=== PATIENT | male | born 1980 | race Caucasian/White ===

== ENCOUNTER 2020-06-25 19:51 | Emergency (ER) | payer MEDICARE, SELFPAY ==
[2020-06-25 19:57] VITALS: BP 159/100; PULSE 105; RESP 18; TEMP 36.6; O2SAT 97; BMI 27.3
--- NOTE | 2020-06-25 20:12 | ED_ITS ---
HPI - Back Pain/Injury General: Chief Complaint: Back Pain/Injury Stated Complaint: FELL/BLE INJURY Time Seen by Provider: 06/25/20 20:02 History of Present Illness: HPI Narrative: 39-year-old male patient presents to the emergency department with low back pain. He suffers from chronic back pain, degenerative disc disease. He sustained a fall today around 2:20 PM, states was walking and slipped and fell on the ice, landed on his bottom. He states immediate tingling of the left lower extremity appeared. He reports continued pain of the lower back, he denies other injury such as head injury or neck pain upon exam. He reports previous fall earlier this week, slipped, experienced worsening chronic back pain at that time. He did not seek medical treatment. He denies bowel or bladder incontinence, denies weakness of the left lower extremity. He denies neck pain or other concerning symptoms upon exam. MD elicited complaint: back pain, back injury and fall Pertinent past history: prior back pain and recent trauma Onset (ago): hour(s) (6) Timing: constant and progressively worsening Severity: moderate Similar Symptoms Previously: Yes Quality: sharp, stabbing and aching Location: lumbar spine Radiation: buttocks (left) Exacerbating factors: movement and walking Relieving factors: immobilization Context: fall Associated symptoms: Reports tingling/numbness/burning (LLE); Deny abdominal pain, chills, difficulty walking, dysuria, fecal incontinence, fever(s), nausea or vomiting Work related injury: No Review of Systems General: Reports: 10 or more systems reviewed and unremarkable except in HPI and below Const: Denies: fever(s), chills or diaphoresis Eyes: Denies: blurry vision or eye redness ENMT: Denies: throat pain, dental pain or disequilibrium Card: Denies: chest pain, palpitations or irregular heart rhythm Resp: Denies: dyspnea, productive cough, non-productive cough or wheezing GI: Denies: abdominal pain, nausea, vomiting, diarrhea or fecal incontinence : Denies: difficulty urinating or dysuria Musc: Reports: back pain; Denies: neck pain, joint pain, joint stiffness or muscle weakness Skin/Breast: Denies: rash or pruritus Neuro: Denies: headache(s), numbness in extremities, weakness in extremities, difficulty walking or behavioral changes Psych: Denies: anxiety or depression Ritchie/Lymph: Denies: easy bruising PFSH ED PFSH: Medical History DDD (degenerative disc disease), cervical Degenerative disc disease, lumbar Hypertension Mixed hyperlipidemia Postdysenteric arthropathy, right knee Social History Smoking and tobacco status: current some day smoker Second hand smoke exposure: No Alcohol intake: never Desire information about alcohol rehabilitation?: No Counseling given: No Desire information about substance/drug rehabilitation?: No Counseling given: No Physical Exam Const: COMMON NORMALS: no acute distress, patient oriented x3, healthy appearing and alert GENERAL APPEARANCE: cooperative, comfortable, well kempt, well developed and well hydrated; not in distress, not anxious and not combative NUTRITIONAL APPEARANCE: thin ORIENTATION/CONSCIOUSNESS: Yes awake, Yes oriented to person, Yes oriented to place and Yes oriented to time HENMT: COMMON NORMALS: normocephalic, atraumatic, EAC's normal, Normal external nose present and moist oral mucous membranes HEAD & SCALP: normal to inspection, normocephalic and atraumatic FACE & SINUS: normal facial exam and face symmetric NOSE: Normal external nose present EXTERNAL AUDITORY CANAL: EAC's normal MOUTH: Normal oral and palatal mucosa present Eye: COMMON NORMALS: Equal, round and reactive pupils present and EOMs intact bilaterally GENERAL EYE: appearance normal, both eyes and all related structures PUPIL: Yes Equal, round and reactive pupils present Neck/C-Spine: COMMON NORMALS: full ROM, no lymphadenopathy, supple and no meningeal signs GENERAL: Yes normal visual inspection and Yes trachea midline CERVICAL SPINE: Yes cervical ROM normal, No pain with cervical ROM and No Cervical spine tenderness Lymph: LYMPHATIC: no lymphadenopathy noted Chest: COMMONS NORMALS: normal inspection of the chest and normal palpation of entire chest wall Resp: COMMON NORMALS: normal respiratory effort, No retractions, No use of accessory muscles and clear to auscultation bilaterally EFFORT & INSPECTION: Yes able to speak in complete sentences, No labored and No audible wheezes AUSCULTATION: clear to auscultation bilaterally Cardio: COMMON NORMALS: regular rate, regular rhythm, S1 normal heart sound present, S2 normal heart sound present and Peripheral pulses 2+ throughout RATE: regular rate RHYTHM: regular rhythm HEART SOUNDS: S1 normal heart sound present and S2 normal heart sound present PERIPHERAL PULSES: Peripheral pulses 2+ throughout GI: COMMON NORMALS: Normal to inspection, nondistended, normoactive bowel sounds present, Soft to palpation and non-tender INSPECTION: Yes normal to inspection, No abdominal distension and No central obesity PALPATION: Yes Soft to palpation : COMMON NORMALS: Yes no CVA tenderness BLADDER/KIDNEY EXAM: Yes no CVA tenderness Back/Pelvis: COMMON NORMALS: no CVA tenderness and thoracic and lumbar spine normal to inspection THORACIC SPINE/UPPER BACK: Yes normal to inspection, Yes thoracic ROM normal and No paraspinal muscle spasm LUMBAR SPINE/LOWER BACK: Yes normal to inspection, Yes ROM limited, Yes lumbar spinal tenderness Lumbar spinal tenderness location: L3, L4 and L5, Yes paraspinal muscle tenderness Lumbar paraspinal muscle tenderness: left, Yes paraspinal muscle spasm Lumbar paraspinal muscle spasm: left, Yes straight leg raise positive left and Yes bend over test abnormal SACROILIAC JOINTS: Yes SI joint(s) abnormal SI joint details: tender to palpation (lt) and pain elicited by compression of iliac crest maneuver (lt) Extremity: COMMON NORMALS: normal to inspection, full ROM, capillary refill normal, no joint enlargement, no clubbing, cyanosis or edema, no calf tenderness and no pedal edema GENERAL: Yes normal exam except as noted Neuro: VERONICA COMA SCALE: document [facility] findings [place] coma scale eye opening: Spontaneous [place] coma scale verbal response: Orientated COMMON NORMALS: patient oriented x3 and no focal motor deficits SENSORIUM/ORIENTATION: Yes alert, Yes oriented to person, Yes oriented to place and Yes oriented to time MENINGEAL SIGNS: Yes no meningeal signs SPEECH: speech normal MONOFILAMENT EXAM PERFORMED: Yes Monofilament Exam (small fiber function): L great toe: decreased, L 3rd toe: decreased and L 5th toe: decreased MOTOR EXAM: Abnormal motor strength present (4/5 LLE) Psych: COMMON NORMALS: mental status grossly normal, Normal thought process present and cooperative APPEARANCE: Yes well kempt ACTIVITY/MOTOR BEHAVIOR: Yes appropriate eye contact THOUGHT PROCESS: Normal thought process present Skin: COMMON NORMALS: no rashes or lesions noted and turgor normal GENERAL SKIN EXAM: no rashes or lesions noted and turgor normal Course Vital Signs: Vital signs: Vital Signs Temperature 97.8 F 06/25/20 19:57 Pulse Rate 82 06/25/20 22:28 Respiratory Rate 18 06/25/20 19:57 Blood Pressure 157/92 06/25/20 22:28 Pulse Oximetry 97 06/25/20 22:28 MDM - Back Pain/Injury MDM Narrative: Medical decision making narrative: 39-year-old male patient presents to the emergency department with chronic low back pain, sustained 2 falls within the past week with new onset of tingling of the left lower extremity. Concern for radiculopathy, CT lumbar spine completed, results of no acute lumbar spinal injury demonstrated by CT. Hydrocodone provided here in the ED, effective with pain control. Results were discussed, he was provided prednisone to help with inflammation and pain due to left side sciatica. He did not demonstrate bowel or bladder incontinence, he did not reveal weakness of the left lower extremity. Monofilament exam slightly decreased to the left lower extremity. He is advised to follow-up with his primary care, MRI discussed as potential future test if symptoms continue. Differential Diagnosis: Differential diagnosis back pain/injury: Likely lumbar radiculopathy, sciatica and strain of lumbar region Imaging Data^: Other CT: Radiologist's impression: [address] [address] [address] Scan Report Signed Patient: Sarwat Rivera #: [id number] : 1980Acct#:[id number] Age/Sex: 39 / MADM Date: 06/25/20 [facility] Attending Dr: Ordering Provider/Ordering MD: Stacie Saxena Date of Service: 06/25/20 Procedure(s): CT lumbar spine wo con* [id number] Accession Number(s): [id number] Report Number: [id number] PROCEDURE INFORMATION: Exam: CT Lumbar Spine Without Contrast Exam date and time: 06/25/2020 8:47 PM Age: 39 years old Clinical indication: Injury or trauma; Blunt trauma (contusions or hematomas); Patient HX: S/P fall in ice C/O lbp w lle radiculopathy; Additional info: L/s spine pain with radiculopathy lle S/P fall TECHNIQUE: Imaging protocol: Computed tomography images of the lumbar spine without contrast. Radiation optimization: All CT scans at this facility use at least one of these dose optimization techniques: automated exposure control; mA and/or kV adjustment per patient size (includes targeted exams where dose is matched to clinical indication); or iterative reconstruction. COMPARISON: No relevant prior studies available. RADIATION DOSE METRICS: Total DLP (mGy-cm): 2393.5 FINDINGS: Vertebrae: There is no anterior wedging deformity. No acute lucent fracture lines are seen. No destructive osseous lesions are identified. Discs/Spinal canal/Neural foramina: There is no central canal or neural foraminal stenosis demonstrated by CT. CT/CT lumbar spine wo con* [id number] IMPRESSION: No acute lumbar spinal injury demonstrated by CT. Radiation Dose CTDIVOL = (mGy): DLP = 2393.5 (mGy-cm) Dictated By:Lidya Shelby MD Signed By:Lidya Shelbyigned Date/Time:06/25/202124 DD/ 24 Discharge Plan Discharge Patient Disposition: Home Clinical Impression: Sciatic leg pain Fall Qualifiers: Encounter type: initial encounter Qualified Code(s): W19.XXXA - Unspecified fall, initial encounter Lumbar back sprain Qualifiers: Encounter type: initial encounter Qualified Code(s): S33.5XXA - Sprain of ligaments of lumbar spine, initial encounter Condition: Stable Prescriptions: New prednisone 20 mg tablet 20 mg PO BID 5 Days Qty: 10 RF: 0 methocarbamol 750 mg tablet 750 mg PO Q8H Qty: 14 RF: 0 naproxen 500 mg tablet 500 mg PO BID PRN (Reason: pain) Qty: 14 RF: 0 No Action rosuvastatin [Crestor] 5 mg tablet 5 mg PO DAILY 90 Days Qty: 90 RF: 1 Discharge Orders: Discharge ED (Routine); Ordered 06/25/20 Ordered By: Stacie Saxena Referrals: VANDANA Davis, MEDICAL OFFICE ASST [Primary Care Provider] - Discharge Diet: Usual diet Discharge Activity: Resume usual activity Patient Instructions: Sciatica (ED), Low Back Strain (ED), Fall Prevention (ED) Activity Restrictions/Additional Instructions: take prednisone with food Take naproxen with food, do not take [id number] medication such as ibuprofen, Aleve, Advil as duplication of therapy can occur May use [id number] medications such as Salonpas or Biofreeze topically to help with pain Cool compresses alternate with warm moist heat several times daily to help with pain Follow-up with your primary care provider in 5 to 7 days if pain is not improved, further studies such as MRI may be needed Do not drive or operate heavy machinery when taking methocarbamol, may cause drowsiness with medication use. Coding Level of Care Code ED Plate Put In Worker for Cucog Fwd Exam Comprehensive
[2020-06-25] MEDS: HYDROcodone-acetaminophen 5-325 mg Tablet 1 TAB PO (20:16)
[2020-06-25] MEDS: methocarbamol 750 mg Tablet PO (22:11)
[2020-06-25] MEDS: predniSONE 20 mg Tablet PO (22:11)
[2020-06-25] MEDS: ketorolac 60 mg/2 mL INJ IM (22:12)
[2020-06-25 22:27] VITALS: PULSE 83; O2SAT 97
[2020-06-25 22:28] VITALS: BP 157/92; PULSE 82; O2SAT 97
== END 2020-06-25 22:29 | disposition home or self-care (01) ==
PROVIDERS: Emergency Provider Nurse Practitioner Family; PCP Nurse Practitioner Family
DX: S33.5XXA Sprain of ligaments of lumbar spine, initial encounter (principal); M54.32 Sciatica, left side; I10 Essential (primary) hypertension; E78.2 Mixed hyperlipidemia; F17.210 Nicotine dependence, cigarettes, uncomplicated; W19.XXXA Unspecified fall, initial encounter
CPT/HCPCS: 72131; 96372; 99283; J1885; J7512